=== PATIENT | female | born 1985 | race Caucasian/White ===

== ENCOUNTER 2024-03-12 15:42 | Emergency (ER) | payer OTHER, SELFPAY ==
--- NOTE | ~2024-03-12 | XR_ITS ---
EXAMINATION: XR chest 2V DATE: 03/12/2024 16:32 INDICATION: Weeks of cough TECHNIQUE: PA and lateral views of the chest were obtained. COMPARISON: None FINDINGS: The lungs are clear with no focal airspace opacities, pulmonary edema, pleural effusion or pneumothor ax. The cardiomediastinal silhouette is normal. Thoracic spondylosis. IMPRESSION: 1. No acute cardiopulmonary disease. Reviewed, dictated and finalized at location B. CORDING MIXER
[2024-03-12 15:49] VITALS: BP 143/73; PULSE 90; RESP 24; TEMP 37; O2SAT 100
--- NOTE | 2024-03-12 16:18 | ED.URI ---
HPI - URI/Sore Throat General Chief Complaint: Upper Respiratory Infection Stated Complaint: Cough Time Seen by Provider: 03/12/24 16:18 Source: patient Mode of arrival: ambulatory Limitations: no limitations History of Present Illness HPI Narrative: 38 yo F presents with c/o cough, chest congestion for 2 wks. Cough getting progressively worse with shortness of breath on exertion. Afebrile. 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 All systems reviewed and negative except as noted above. Related Data Home Medications Medication Instructions Recorded Confirmed Iud 03/12/24 Allergies Allergy/AdvReac Type Severity Reaction Status Date / Time No Known Allergies Allergy Verified 03/12/24 15:51 Review of Systems Review of Systems: CONSTITUTIONAL: Denies fever, chills, or sweats. reports fatigue. EYES: Denies visual changes, redness, or discharge. ENT: Reports rhinorrhea, congestion. Denies sore throat, or otalgia. CARDIOVASCULAR: Denies chest pain, palpitations, or edema. RESPIRATORY: Reports cough and dyspnea with exertion. GASTROINTESTINAL: Denies abdominal pain, nausea, vomiting, or diarrhea. GENITOURINARY: Denies dysuria or hematuria. SKIN: Denies rash or itching. MUSCULOSKELETAL: Denies back pain, joint pain, or myalgia. NEUROLOGIC: Denies headache, numbness, or weakness. PSYCHIATRIC: Denies anxiety or depression. All other systems reviewed are negative, except as documented in HPI. PMFSH Comments At time of signature, agree with nursing past medical, surgical, social and family history. There is no relevant family history pertinent to the presenting complaint. Exam Narrative: GENERAL: This is a well-nourished, well-developed patient, in no apparent distress. HEAD: normocephalic, atraumatic. EYES: PERRL. Sclera clear/white. Vision is grossly intact. EARS: External ears normal, auditory canals clear and without drainage, TMs normal without perforation. Hearing grossly intact. NOSE: External nose normal with no obvious nasal discharge, nares without redness, no rhinorrhea. THROAT: Mucous membranes moist, posterior pharynx clear. NECK: Neck supple, non-tender without lymphadenopathy, masses or thyromegaly. CARDIOVASCULAR: Regular rate and rhythm without murmurs, gallops, or rubs. RESPIRATORY: coarse throughout all lung jorgensen. Breath sounds equal bilaterally. No wheezes, rales, or rhonchi. SKIN: warm, Dry, intact with no suspicious lesions or rash, good texture and turgor. NEURO: awake, alert, and oriented to person, place and time. There were no obvious focal neurologic abnormalities. EXTREMITIES: No joint tenderness, effusion, or edema noted. Course Course Level of Care: Express Care Visit Vital Signs Vital signs: Vital Signs Temperature 37.0 C 03/12/24 15:49 Pulse Rate 90 03/12/24 15:49 Respiratory Rate 24 H 03/12/24 15:49 Blood Pressure 143/73 H 03/12/24 15:49 Pulse Oximetry 100 03/12/24 15:49 Oxygen Delivery Room Air 03/12/24 15:49 Temperature 37.0 C 03/12/24 15:49 Pulse Rate 90 03/12/24 15:49 Respiratory Rate 24 H 03/12/24 15:49 Blood Pressure 143/73 H 03/12/24 15:49 Pulse Oximetry 100 03/12/24 15:49 Oxygen Delivery Room Air 03/12/24 15:49 Reviewed MDM - URI/Sore Throat MDM Narrative Medical decision making narrative: chest x-ray negative for pneumonia. Will treat patient with prednisone, albuterol inhaler for acute bronchitis. Patient is aware of diagnosis, understands and agrees to treatment plan. Anticipatory guidance given. Patient agrees to follow-up as directed and is aware of reasons to seek care at the emergency department. Portions of this record may have been created with voice recognition software Differential Diagnosis Differential diagnosis: Likely upper respiratory infection, sinusitis, viral infection, bronchitis and influenza Imaging Data My impression: agree with radiologist Radiologist's impression: EXAMINATION: XR chest 2V DATE: 03/12/2024 16:32 INDICATION: Weeks of cough TECHNIQUE: PA and lateral views of the chest were obtained. COMPARISON: None FINDINGS: The lungs are clear with no focal airspace opacities, pulmonary edema, pleural effusion or pneumothorax. The cardiomediastinal silhouette is normal. Thoracic spondylosis. IMPRESSION: 1. No acute cardiopulmonary disease. Discharge Plan Discharge Clinical Impression: Acute bronchitis Patient Disposition: Home, Self-Care Condition: Stable Instructions: Acute Bronchitis (ED) Additional Instructions: Your chest x-ray was normal, no pneumonia was seen. Bronchitis is a virus and cough may last up to 6 weeks. Take medications as prescribed. Take [id number] Mucinex DM as directed on packaging. Drink at least 64 oz of water a day. Follow-up with your primary care physician if symptoms are not improving. Prescriptions: New benzonatate 200 mg capsule 200 mg PO TID PRN (Reason: cough) Qty: 20 0RF prednisone 20 mg tablet 40 mg PO DAILY 5 Days Qty: 10 0RF albuterol sulfate 90 mcg/actuation HFA aerosol inhaler 2 puff inhalation Q4-6H PRN (Reason: shortness of breath or wheezing) Qty: 8.5 0RF No Action Iud Follow-up/Referrals: PHYSICIAN NOT ON STAFF,NONSTAFF [Primary Care Provider] - Time of Disposition: 16:45
== END 2024-03-12 16:48 | disposition home or self-care (01) ==
PROVIDERS: Emergency Provider Nurse Practitioner Family
DX: J20.9 Acute bronchitis, unspecified (principal)
CPT/HCPCS: 71046; 99203; G0463

== ENCOUNTER 2024-07-01 08:01 | Emergency (ER) | payer OTHER, BC, SELFPAY ==
--- NOTE | 2024-07-01 08:03 | ED_ITS ---
HPI - URI/Sore Throat General Chief Complaint: Upper Respiratory Infection Stated Complaint: swollen tonsils Time Seen by Provider: 07/01/24 08:11 Source: patient, RN notes reviewed and old records reviewed Mode of arrival: ambulatory Limitations: no limitations History of Present Illness HPI Narrative: 38-year-old female presents to the [facility] with a sore throat and swollen tonsils since last night. Reports body aches, low-grade fevers. patient is maintaining own secretions. Has not taken anything to treat her symptoms. Onset (ago): hour(s) (12) Treatments prior to arrival: none Related Data Home Medications ?Medication ?Instructions ?Recorded ?Confirmed ?Last Taken ?Type Iud 03/12/24 Unknown History Allergies Allergy/AdvReac Type Severity Reaction Status Date / Time No Known Allergies Allergy Verified 03/12/24 15:51 Review of Systems Review of Systems: All systems reviewed & are unremarkable except as noted in HPI and below Constitutional: Constitutional: Reports as per HPI, Reports body ache(s), Reports chills, Reports fatigue and Reports fever(s) ENT: Reports as per HPI and Reports sore throat Cardiovascular: Cardiovascular: Reports no additional cardiovascular complaints, Denies chest pain and Denies dyspnea Respiratory: Respiratory: Reports no additional respiratory complaints, Denies chest congestion, Denies cough and Denies dyspnea Musculoskeletal: Musculoskeletal: Reports no additional musculoskeletal complaints Integumentary/Breasts: Skin/Breast: Reports system reviewed and no additional complaints, except as docu PMFSH Comments At the time of my signature, I reviewed and agree with the nursing past medical, surgical, social, and family history. There is no relevant family history pertinent to the patient complaint. Exam Const: General: cooperative, no acute distress, well developed, alert, tired appearing, uncomfortable and well nourished Nutritional Appearance: well nourished Orientation/consciousness: patient oriented x3 Limitations: no limitations HENMT: Head: normal to inspection Ears: hearing grossly normal bilaterally, external ears normal, TM's normal bilaterally, mastoids normal, no periauricular adenopathy and Abnormal EAC present Face/Nose/Sinus: Normal external nose present, Normal nares present, normal facial exam and sinuses nontender Face and sinus: normal facial exam Mouth: Yes Normal oral and palatal mucosa present, Yes lip normal, Yes tongue normal and Yes moist mucous membranes Thr oat: posterior oropharynx normal, uvula midline, abnormal tonsil bilateral exudates and hypertrophy 2+; no erythema and no uvular edema Eyes: General: appearance normal, both eyes and all related structures Alignment and Position: alignment normal Neck: Neck: normal visual inspection, full ROM, no lymphadenopathy and no meningeal signs Chest: Chest palpation & inspection: normal inspection of the chest Resp: Effort & Inspection: normal respiratory effort and able to speak in complete sentences Auscultation: clear to auscultation bilaterally, no crackles, no rales, no rhonchi and no wheezes Cardio: Rate: regular rate Skin: General skin exam: normal color and no rashes or lesions noted Neuro: General: patient oriented x3, gait normal, moves all extremities and no meningeal signs Cognition (Neuro): normal cognition Speech: normal speech Gait exam (Neuro): Normal gait present Extrem: General: normal to inspection, full ROM, capillary refill normal and normal gait Psych: Appearance: grossly normal and well kempt Mental Status: mental status grossly normal Speech and movement: Normal speech and movement present and Clear speech present Affect: normal affect Attitude: cooperative Course Course Level of Care: Express Care Visit Vital Signs Vital signs: Vital Signs Temperature 99.5 F 07/01/24 08:06 Pulse Rate 102 H 07/01/24 08:06 Respiratory Rate 20 07/01/24 08:06 Blood Pressure 126/74 07/01/24 08:06 Pulse Oximetry 100 07/01/24 08:06 Oxygen Delivery Room Air 07/01/24 08:06 Temperature 99.5 F 07/01/24 08:06 Pulse Rate 102 H 07/01/24 08:06 Respiratory Rate 20 07/01/24 08:06 Blood Pressure 126/74 07/01/24 08:06 Pulse Oximetry 100 07/01/24 08:06 Oxygen Delivery Room Air 07/01/24 08:06 Reviewed MDM - URI/Sore Throat MDM Narrative Medical decision making narrative: Patient sitting in exam room. Patient is nontoxic, vitals stable. patient presents for a sore throat, body aches. Patient is strep positive, flu and COVID negative. Patient is appropriate for outpatient treatment and follow- up Discharge instructions reviewed with patient, as well as provided in writing per nursing staff. The instructions also include specific and strict return/GO TO THE ER as well as f/u information. All questions have been answered, and the patient deny any further questions with discharge and discharge plan. Some parts of this dictation were generated by voice recognition software and may contain typographical and/or grammatical inaccuracies. Differential Diagnosis Differential diagnosis: Likely upper respiratory infection, otitis media, sinusitis, viral infection, bronchitis, influenza and pharyngitis Lab Data Labs: Lab Results 07/01/24 Range/Units 08:16 POC Influenza A Ag Negative (Negative) POC Influenza B Ag Negative (Negative) POC SARS CoV-2 Ag Negative (Negative) POC Grp A Strep Screen Positive (Negative) reviewed Critical Care Time Critical Care Time Critical Care Time: No Discharge Plan Discharge Clinical Impression: Strep pharyngitis Patient Disposition: Home, Self-Care Condition: Stable Instructions: Antibiotic Form, Strep Throat (DC) Additional Instructions: After 24-48 hours on antibiotics, Throw the toothbrush away, start using a new one. Please be sure to wash bed linens especially pillow cases. Repeat once you finish the antibiotics. Do not share drinks. Take Motrin alternating with Tylenol for pain and fever alternating every 4 hours. you can use Chloraseptic spray to help with sore throat Increase fluids, avoid caffeine. Give plenty of water, juice, Gatorade, P edialyte, ice pops in Jell-O Follow up with Primary provider if not getting better this week For new or worsening symptoms go directly to the emergency room Patient Language: Nauruan Prescriptions: New amoxicillin 875 mg tablet 875 mg PO Q12H Qty: 20 0RF No Action Iud benzonatate 200 mg capsule 200 mg PO TID PRN (Reason: cough) Qty: 20 0RF prednisone 20 mg tablet 40 mg PO DAILY 5 Days Qty: 10 0RF albuterol sulfate 90 mcg/actuation HFA aerosol inhaler 2 puff inhalation Q4-6H PRN (Reason: shortness of breath or wheezing) Qty: 8.5 0RF Follow-up/Referrals: UNKNOWN,DOCTOR [Non-Staff] - Stand Alone Forms: Work/School Release IP Time of Disposition: 08:24
[2024-07-01 08:06] VITALS: BP 126/74; PULSE 102; RESP 20; TEMP 37.5; O2SAT 100
--- OUTSIDE RECORDS SUMMARY | 2024-07-01 08:10 | XMS_ITS | Clinical Summary ---
Author Organization [facility] Address [address] [place] [address] Phone Care Team Providers Care Safety Risk Lead Name Role Phone Gabriel Meraz APRN, CNP Primary Care Pr ovider Allergies No known active allergies Medications COMPOUNDED MEDICATIONIndic ations:Sore throat,Mouth sore Mix equal parts prednisolone , diphenhydram ine, maalox, and viscous lidocaine. Swish and spit 20ml QID for 7 days. 600 mL 05/07/2024 Active Active Problems No known active problems Encounters Date Type Department Care Team Description 05/07/2024 Telephone [facility] [place] [address] Gabriel Meraz APRN, CNP Medication Management 05/07/2024 Refill [facility] [address] [place] [address] Gabriel Meraz APRN, CNP Medication Refill 05/03/2024 11:00 AM LUBE TECHNICIAN Office Visit [facility] [address] [place] [address] Gabriel Meraz APRN, CNP Oral leukoplakia (Primary Dx); Sore throat; Mouth sore Discharge Disposition: Discharged to home or Selfcare 05/03/2024 Telephone [facility] [address] [place] [address] Gabriel Meraz APRN, JERAMIE Medication Refill 05/01/2024 Travel 04/21/2024 Travel from Last 3 Months Family History Medical History Relation Name Comments Anxiety disorder Brother 1 Shekhar Depression Brother 1 Shekhar Diabetes Brother 1 Shekhar No Known Problems Brother 2 Cancer Father Jean Diabetes Father Jean Skin Cancer Father Jean Diabetes Mother Kirly Diabetes Sister Aye Relation Name Status Comments Brother 1 Shekhar Alive Brother 2 Alive Father Jean Alive Maternal Grandfather Alive Mother Kirly Alive Sister Aye Alive Social History Tobacco Use Types Packs/Day Years Used Date Smoking Tobacco: Never Smokeless Tobacco: Never Tobacco Cessation:Counseling Given: No Alcohol Use Standard Drinks/Week Comments Yes 0 (1 standard drink = 0.6 oz pur e alcohol) rare [facility] Utilities Answer Date Recorded In the past 12 months has e [employer], gas, oil, or water [employer] threatened to shut off services in your home? No 04/21/2024 Social Connection and Isolat ion Panel [NHANES] Answer Date Recorded In a typical week, how many times do you talk on the phone with family, friends, or neighbors? More than three times a week 04/21/2024 How often do you get togethe r with friends or relatives? Never 04/21/2024 How often do you attend chur or islam services? More than 4 times per year 04/21/2024 Do you belong to any clubs o r organizations such as hoahaoism groups, unions, fraternal or athletic groups, or school groups? No 04/21/2024 How often do you attend meet ings of the clubs or organizations you belong to? Never 04/21/2024 Are you , , di vorced, , never , or living with a partner? 04/21/2024 AUDIT-C Answer Date Recorded Q1: How often do you have a drink containing alcohol? Never 04/21/2024 Q2: How many drinks containi ng alcohol do you have on a typical day when you are drinking? Patient does not drink Q3: How often do you have si x or more drinks on one occasion? Never 04/21/2024 Overall Financial Resource Strain (CARDIA) Answe r Date Recorded How hard is it for you to pa y for the very basics like food, housing, medical care, and heating? Not hard at all 04/21/2024 PHQ-2 Answer Date Recorded Total Score - Questions 1-9 0 04/21 [facility] of Occupat ional [facility] - Occupational Stress Questionnaire Answer Date Recorded Do you feel stress - tense, restless, nervous, or anxious, or unable to sleep at night because your mind is troubled all the time - these days? Not at all 04/21/2024 Exercise Vital Sign Answer Date Recorde d On average, how many days pe r week do you engage in moderate to strenuous exercise (like a brisk walk)? 0 days 04/21/2024 On average, how many minutes do you engage in exercise at this level? 0 min 04/21/2024 Hunger Vital Sign Answer Date Recorded Within the past 12 months, y ou worried that your food would run out before you got the money to buy more. Never true 04/21/19 25 Within the past 12 months, t he food you bought just didn't last and you didn't have money to get more. Never true 04/21/2024 PRAPARE - Transportation Answer Date Re corded In the past 12 months, has l ack of transportation kept you from medical appointments or from getting medications? No 04/2024 In the past 12 months, has l ack of transportation kept you from meetings, work, or from getting things needed for daily living? No 04/21/2024 Housing Stability Vital Sign Answer Kiran e Recorded In the last 12 months, was t here a time when you were not able to pay the mortgage or rent on time? No 04/21/2024 In the past 12 months, how m any times have you moved where you were living? 0 04/21/2024 At any time in the past 12 m [facility], were you homeless or living in a fdc (including now)? No 04/21/2024 Sexually Active Control Partners Comments Yes I.U.D. Male Comments No Sex and Gender Information Value Date Recorded Sex Assigned at Female 03/25/2024 11:31 AM LUBE TECHNICIAN Legal Sex Female 11:48 AM CDT Gender Identity Female 03/25/2024 11:31 AM LUBE TECHNICIAN Sexual Orientation Straight 03/25/2024 11 :31 AM LUBE TECHNICIAN Last Filed Vital Signs Vital Sign Reading Time Taken Comments Blood Pressure 124/78 05/03/2024 10:55 AM LUBE TECHNICIAN Pulse 75 05/03/2024 10:55 AM LUBE TECHNICIAN Temperature 36.4 C (97.6 F) 05/03/2024 10:55 AM LUBE TECHNICIAN Respiratory Rate 16 05/03/2024 10:5 5 AM LUBE TECHNICIAN Oxygen Saturation 96% 05/03/2024 10: 55 AM LUBE TECHNICIAN Inhaled Oxygen Concentration - - Weight 93.4 kg (205 lb 14.4 oz) 025 10:55 AM LUBE TECHNICIAN Height 162.6 cm (5' 4 ) 05/03/2024 10:5 5 AM LUBE TECHNICIAN Body Mass Index 35.34 05/03/2024 10:55 AM LUBE TECHNICIAN Plan of Treatment Health Maintenance Due Date Last Done Comments Hepatitis C Virus (HCV) Screening 1986 Hepatitis B Immunization (1 of 3 - 19+ 3-dose series) 2005 HPV/Cotest 2016 Influenza Immunization (#1) 2023 02/24/2017 SARS-COV-2 Immunization ( season) 2023 Cervical Cancer Screening (CCS) 11/17/2025 Pap Smear 11/17/2025 11/17/2022 Respiratory Syncytial Virus (RSV) Immunization (Adult) (1 - 1-dose 75+ series) 2061 TdaP Immunization Completed 02/24/2017, 04/21/2016 Meningococcal Immunization (ACWY) Aged Out No longer eligible b ased on patient's age to complete this topic Pneumococcal Immunization Combined Aged Out No longer eligible b ased on patient's age to complete this topic Rotavirus Immunization Aged Out No lo nger eligible based on patient's age to complete this topic Procedures Procedure Name Priority Date/Time Associated Diagnosis Comments POC GROUP A STREP BY MOLECULAR Routine 05/03/2024 11:02 AM LUBE TECHNICIAN Sore throat from Last 3 Months Results * POC GROUP A STREP BY MOLECULAR (05/03/2024 11:02 AM LUBE TECHNICIAN) STREP A DNA Negative Negative, Invalid PROCEDURE CONTROL Valid 05/03/2024 11:0 2 AM LUBE TECHNICIAN Gabriel Meraz APRN, CNP POINT OF CARE TE STING (MANUAL) Final Result from Last 3 Months Insurance [facility] Care Teams Safety Risk Lead Relationship Specialty Start Date End Date Gabriel Meraz APRN, CNP [address] [address] PCP - General Advanced Practice Nurse 11/18/23
[2024-07-01 08:31] LABS: EDCOVIDSCREEN Negative (Negative); EDINFLUASCREEN Negative (Negative); EDINFLUBSCREEN Negative (Negative); EDSTREPNEGPOS1 Positive (Negative)
== END 2024-07-01 08:29 | disposition home or self-care (01) ==
PROVIDERS: Emergency Provider Nurse Practitioner
DX: J02.0 Streptococcal pharyngitis (principal); Z20.822 Contact with and (suspected) exposure to COVID-19
CPT/HCPCS: 87426; 87804; 87880; 99213; G0463

== ENCOUNTER 2024-07-28 15:06 | Emergency (ER) | payer OTHER, BC, SELFPAY ==
[2024-07-28 15:10] VITALS: BP 119/71; PULSE 80; RESP 18; TEMP 36.6; O2SAT 100
--- NOTE | 2024-07-28 15:21 | ED_ITS ---
HPI - Female Genitourinary General Chief complaint: Urogenital-Female Stated complaint: urinary irritation Source: patient and RN notes reviewed Mode of arrival: ambulatory Limitations: no limitations History of Present Illness HPI Narrative: 38 y/o female presented for c/o pressure at the end of urination, frequency and urgency. Onset yesterday. Denies hematuria, nausea, vomiting, abdominal pain, flank pain, constipation, diarrhea, fevers or chills. Related Data Home Medications ?Medication ?Instructions ?Recorded ?Confirmed ?Last Taken ?Type Iud 03/12/24 Unknown History Donna-D 24 Hour 07/28/24 Unknown History flonase 07/28/24 Unknown History Allergies Allergy/AdvReac Type Severity Reaction Status Date / Time No Known Allergies Allergy Verified 07/28/24 15:13 Review of Systems Review of Systems: CONSTITUTIONAL: Denies body aches, fever, chills, or sweats. CARDIOVASCULAR: Denies chest pain, palpitations, or edema. RESPIRATORY: Denies cough or dyspnea. GASTROINTESTINAL: Denies abdominal pain, nausea, vomiting, or diarrhea. GENITOURINARY: Reports dysuria, frequency, urgency, denies hematuria, flank pain SKIN: Denies rash, itching, or wounds. MUSCULOSKELETAL: Denies back pain or myalgia. PMFSH Comments At time of signature, I have reviewed and agree with nursing past medical, surgical, social and family history unless otherwise noted. Please see nursing chart for further information. There is no relevant family history pertinent to the presenting complaint Exam Narrative: GENERAL: Well-appearing ENT: Mucous membranes pink and moist. CHEST: No respiratory distress. Clear to auscultation. HEART: Regular rate and rhythm. ABDOMEN: Soft, nontender, nondistended, normal active bowel sounds. No CVA tenderness SKIN: Warm, dry, no rash. NEURO: No focal deficits. Alert and oriented x3. Gait steady. PSYCH: Normal affect. Course Course Emergency Course: Patient is aware of diagnosis, understands and agrees to treatment plan. Anticipatory guidance given. Patient agrees to follow-up as directed and is aware of reasons to seek care at the emergency department. Portions of this record may have been created with voice recognition software Level of Care: Express Care Visit Vital Signs Vital signs: Reviewed MDM - Female Genitourinary MDM Narrative Medical decision making narrative: Discussed physical exam findings and urine dip , Rx macrobid Advised supportive measures and signs/symptoms to go to the ER. Pt is appropriate for outpt treatment and f/u. Differential Diagnosis Differential diagnosis: Likely urinary tract infection, vaginitis and cystitis Discharge Plan Discharge Clinical Impression: Urinary tract infection Patient Disposition: Home Condition: Stable Instructions: Antibiotic Form, Urinary Tract Infection in Women (ED) Additional Instructions: Take the antibiotic as prescribed The urine will be sent of for a culture to identify what type of bacteria is causing your infection. If the culture shows that the antibiotic will not get rid of your infection, you will be notified and a new antibiotic will be called in for you. Increase water intake you will need to follow up with your PCP, call to schedule an appointment. Go to the ER for any worsening symptoms or concerns Patient Language: Thai Prescriptions: New nitrofurantoin monohyd/m-cryst [Macrobid] 100 mg capsule 100 mg PO Q12H 5 Days Qty: 10 0RF Rx Instructions: must administer with a meal/food No Action Iud Donna-D 24 Hour flonase Follow-up/Referrals: PHYSICIAN,MONITORING AND EVALUATION ADVISOR [Primary Care Provider] - Time of Disposition: 15:30
--- OUTSIDE RECORDS SUMMARY | 2024-07-28 16:32 | XMS_ITS | Continuity of Care Document ---
Author Organization [facility] Address [address] [place] [address] Phone Care Team Providers Care Broom Machine Operator Name Role Phone DEYSI MCCRACKEN MD Unavailable [...] Diagnoses Date Provider Providers Copied on Encounter [facility] , [address], [place], [place], [id number], [place] tel:[phone] [place] IUD REMOVAL (chief complaint) Encounter for removal of intrauterine contraceptive device 2 [address], [place], [id number], . tel:[phone] Referring Provider: DEYSI MCCRACKEN, [address] [place], [address]. tel:[phone] [facility] , [facility], [id number], tel:[phone] [facility] [place] [facility] rastafari status JERROD SHINE. [address] [place], [place], [id number], [place]. tel:[phone] Referring Provider: RL ELDER, [address] [place], [address]. tel:[phone] [facility] , [facility], [id number], [place] tel:[phone] [facility] [place] No Information 8 TYESHA [address]. [address] [place], [id number], [place]. tel:[phone] Referring Provider: KATE MCKEE, [address], [address]. tel:[phone] [facility] , [facility], [id number], tel:[phone] [facility] [place] No Information 8 JERROD SHINE. [address], [place], [id number], [place]. tel:[phone] Referring Provider: RL ELDER, [address] [place], [address]. tel:[phone] Family History Family Member Type Diagnosis Age At Onset Mother Problem Diabetes mellitus Father Problem Diabetes mellitus Paternal aunt Problem malignant neoplasm of ovary Payers Payer name Insurance type Covered democrat ID Authoriza tion(s) No Information Social History [...]
--- OUTSIDE RECORDS SUMMARY | 2024-07-28 16:32 | XMS_ITS | Clinical Summary ---
Author Organization [facility] Address [address] [place] [address] Phone Care Team Providers Care Qa Manager Name Role Phone Gabriel Meraz APRN, CNP Primary Care Pr ovider Allergies No known active allergies Medications COMPOUNDED MEDICATIONIndic ations:Sore throat,Mouth sore Mix equal parts prednisolone , diphenhydram ine, maalox, and viscous lidocaine. Swish and spit 20ml QID for 7 days. 600 mL 05/07/2024 Active Active Problems No known active problems Encounters Date Type Department Care Team Description 05/07/2024 Telephone [facility] [place] [address] Gabriel Meraz APRN, CNP Medication Management 05/07/2024 Refill [facility] [place] [address] Gabriel Meraz APRN, CNP Medication Refill 05/03/2024 11:00 AM MILITARY TECHNOLOGY SPECIALIST Office Visit [facility] [place] [address] Gabriel Meraz APRN, CNP Oral leukoplakia (Primary Dx); Sore throat; Mouth sore Discharge Disposition: Discharged to home or Selfcare 05/03/2024 Telephone [facility] [place] [address] Gabriel Meraz APRN, JERAMIE Medication Refill 05/01/2024 Travel from Last 3 Months Family History [...] = 0.6 oz pur e alcohol) rare [facility] Utilities Answer Date Recorded In the past 12 months has [employer], gas, oil, or water company threatened to shut off services in your [...] How often do you attend chur or gnosticist services? More than 4 times per year 04/21/2024 Do you belong to any clubs o r organizations such as anabaptist groups, unions, fraternal or athletic groups, or [...] Total Score - Questions 1-9 0 04/21 [facility] of Occupat ional [facility] - Occupational Stress Questionnaire Answer Date [...] any time in the past 12 m [facility], were you homeless or living in a nursing home (including now)? No 04/21/2024 Sexually Active Control Partners Comments Yes I.U.D. Male Comments No Sex and Gender Information Value Date Recorded Sex Assigned at Female 03/25/2024 11:31 AM MILITARY TECHNOLOGY SPECIALIST Legal Sex Female 11:48 AM CDT Gender Identity Female 03/25/2024 11:31 AM MILITARY TECHNOLOGY SPECIALIST Sexual Orientation Straight 03/25/2024 11 :31 AM MILITARY TECHNOLOGY SPECIALIST Last Filed Vital Signs Vital Sign Reading Time Taken Comments Blood Pressure 124/78 05/03/2024 10:55 AM MILITARY TECHNOLOGY SPECIALIST Pulse 75 05/03/2024 10:55 AM MILITARY TECHNOLOGY SPECIALIST Temperature 36.4 C (97.6 F) 05/03/2024 10:55 AM MILITARY TECHNOLOGY SPECIALIST Respiratory Rate 16 05/03/2024 10:5 5 AM MILITARY TECHNOLOGY SPECIALIST Oxygen Saturation 96% 05/03/2024 10: 55 AM MILITARY TECHNOLOGY SPECIALIST Inhaled Oxygen Concentration - - Weight 93.4 kg (205 lb 14.4 oz) 025 10:55 AM MILITARY TECHNOLOGY SPECIALIST Height 162.6 cm (5' 4 ) 05/03/2024 10:5 5 AM MILITARY TECHNOLOGY SPECIALIST Body Mass Index 35.34 05/03/2024 10:55 AM MILITARY TECHNOLOGY SPECIALIST Plan of Treatment Health Maintenance Due Date [...] STREP BY MOLECULAR Routine 05/03/2024 11:02 AM MILITARY TECHNOLOGY SPECIALIST Sore throat from Last 3 Months Results * POC GROUP A STREP BY MOLECULAR (05/03/2024 11:02 AM MILITARY TECHNOLOGY SPECIALIST) STREP A DNA Negative Negative, Invalid PROCEDURE CONTROL Valid 05/03/2024 11:0 2 AM MILITARY TECHNOLOGY SPECIALIST Gabriel Meraz APRN, CNP POINT OF CARE TE STING (MANUAL) Final Result from Last [address] [place] [address] Care Teams Qa Manager Relationship Specialty Start Date End Date Gabriel Meraz APRN, JERAMIE #[address] [address] PCP - General Advanced Practice Nurse 11/18/23
--- OUTSIDE RECORDS SUMMARY | 2024-07-28 16:34 | XMS_ITS | Continuity of Care Document ---
Author Organization [facility] Address [address] [place] [address] Phone Care Team Providers Care Stranding Supervisor Name Role Phone DEYSI MCCRACKEN MD Unavailable [...] Diagnoses Date Provider Providers Copied on Encounter [facility] , [address], [place], [place], [id number], [place] tel:[phone] [place] IUD REMOVAL (chief complaint) Encounter for removal of intrauterine contraceptive device 2 [address], [place], [id number], . tel:[phone] Referring Provider: DEYSI MCCRACKEN, [address] [place], [address]. tel:[phone] [facility] , [facility], [id number], tel:[phone] [facility] [place] Dental buddhism status JERROD SHINE. [address] [place], [place], [id number], [place]. tel:[phone] Referring Provider: RL ELDER, [address] [place], [address]. tel:[phone] [facility] , [facility], [id number], [place] tel:[phone] [facility] [place] No Information 8 TYESHA RIVERA. [address] [place], [id number], [place]. tel:[phone] Referring Provider: KATE MCKEE, [address], [address]. tel:[phone] [facility] , [facility], [id number], tel:[phone] [facility] [place] No Information 8 JERROD SHINE. [address] [place], [place], [id number], [place]. tel:[phone] Referring Provider: RL ELDER, [address] [place], [address]. tel:[phone] Family History Family Member Type Diagnosis Age At Onset Mother Problem Diabetes mellitus Father Problem Diabetes mellitus Paternal aunt Problem malignant neoplasm of ovary Payers Payer name Insurance type Covered [employer] ID Authoriza tion(s) No Information Social [...]
[2024-07-28 16:36] LABS: EDUAAPPEAR Clear; EDUABILI Negative (Negative); EDUABLOOD Trace (Negative); EDUACOLOR1 Yellow; EDUAGLUCOSE Negative (Negative); EDUAKETONE Negative (Negative); EDUALEUKO Trace (Negative); EDUANITRATE Positive (Negative); EDUAPROTEIN Negative (Negative); EDUASPGRAVITY 1.025; EDUAUROBILI 0.2
== END 2024-07-28 15:33 | disposition home or self-care (01) ==
PROVIDERS: Emergency Provider Nurse Practitioner Family
DX: N39.0 Urinary tract infection, site not specified (principal); B96.1 Klebsiella pneumoniae [K. pneumoniae] as the cause of diseases classified elsewhere
CPT/HCPCS: 81003; 87077; 87086; 87186; 99213; G0463

== ENCOUNTER 2025-01-15 09:42 | Outpatient (CLI) | payer OTHER, BC, SELFPAY ==
[2025-01-15 09:55] LABS: Hematocrit 40.9 % (35.0-49.0); Hemoglobin 13.2 g/dL (12.0-15.0); Immature Granulocyte Percent A 0.6 % (0.0-0.0); Lymphocytes Absolute Auto 2.18 K/mm3 (1.10-4.50); Mean Corpuscular HGB Conc 32.3 g/dL (32-36); Mean Corpuscular Hemoglobin 30.1 pg (27.0-31.0); Mean Corpuscular Volume 93.4 fL (78.0-102.0); Nucleated Red Blood Cells Absolute Auto 0.00 K/mm3 (0.00-0.00); Nucleated Red Blood Cells Perc 0.0 % (0-0.0); Platelet Count Result 297 K/mm3 (150-420); Red Blood Count 4.38 M/mm3 (4.20-5.40); White Blood Count 14.1 K/mm3 (4.8-10.8)
[2025-01-15 10:33] LABS: Alanine Aminotransferase 17 U/L (6-35); Albumin Level 4.6 g/dL (3.5-5.1); Alkaline Phosphatase 69 U/L (38-126); Anion Gap 8 mmol/L (4-12); Aspartate Amino Transferase 25 U/L (14-36); Bilirubin,Total 0.9 mg/dL (0.2-1.3); Blood Urea Nitrogen 14 mg/dL (7-17); Calcium 9.8 mg/dL (8.4-10.2); Carbon Dioxide 28 mmol/L (22-30); Chloride 105 mmol/L (98-107); Cholesterol 178 mg/dL (0-200); Estimated Glomerular Filt Rate > 60; Glucose 95 mg/dL (65-110); HDL Direct 62 mg/dL; Osmolality Calculated 292 mOsm/kg (285-295); Potassium 5.0 mmol/L (3.4-5.0); Sodium 141 mmol/L (137-145); Total Protein 9.2 g/dL (6.3-8.2); Triglycerides 76 mg/dL (<150)
[2025-01-15 11:03] LABS: Thyroid Stimulating Hormone Reflex 0.955 uIU/mL (0.465-4.68)
[2025-01-15 11:10] LABS: Hemoglobin A1C 5.5 % (<5.7)
== END 2025-01-15 09:43 | disposition home or self-care (01) ==
LOC: CHSLAB 09:44
PROVIDERS: PCP Nurse Practitioner Family; Visit Provider Nurse Practitioner Family
DX: Z00.00 Encounter for general adult medical examination without abnormal findings (principal)
CPT/HCPCS: 36415; 80053; 80061; 83036; 84443; 85025

== ENCOUNTER 2025-02-05 08:34 | Outpatient (CLI) | payer OTHER, BC, SELFPAY ==
--- OUTSIDE RECORDS SUMMARY | 2022-03-25 10:20 | XMS_ITS | Continuity of Care Document ---
Author Organization [facility] Address [address] [place] [address] Phone Care Team Providers Care Director Database Name Role Phone DEYSI MCCRACKEN MD Unavailable Unavailable Allergies, Adverse Reactions, Alerts Substance Reaction Status Criticality minocycline Active No Information Medications Medication Instructions Dosage Effective Dates (start - stop) Status Comments No Drug Therapy Prescribed Procedures Procedure Date SYST BP LT 130 MM HG DIAST BP 80-89 MM HG IUD Removal Only URINE TEST Resin-2 surface, posterior Occlusal adjustment-limited Prophy Adult Intraoral Full Mouth Xrays Comp oral eval-new/estab pat Advance Directives Directive Yes / No Effective Date File Name Other Directive No N/A N/A WARNING:The information contained in this section is historical and is provided for information only and does not constitute a legal document or any assurance that the information is still accurate. Please verify the information with the lopez of the legal document before using it for clinical purposes. Encounters Encounter Description Practice Location Reason(s) For Visit Diagnoses Date Provider Providers Copied on Encounter [facility] , [address], [place], [place], [id number], [place] tel:[phone] [place] IUD REMOVAL (chief complaint) Encounter for removal of intrauterine contraceptive device 2 KAYKAY JO. [address], [place], [id number], . tel:[phone] Referring Provider: DEYSI MCCRACKEN, [address] [place], [address]. tel:[phone] [facility] , [facility], [id number], tel:[phone] [facility] caodaism status JERROD SHINE. [address], [place], [id number], [place]. tel:[phone] Referring Provider: RL ELDER, [address] [place], [address]. tel:[phone] [facility] , [facility], [id number], [place] tel:[phone] [facility] No Information 8 TYESHA RIVERA. [address], [place], [id number], [place]. tel:[phone] Referring Provider: KATE MCKEE, [address], [address]. tel:[phone] [facility] , [facility], [id number], tel:[phone] [facility] No Information 8 JERROD SHINE. [address], [place], [id number], [place]. tel:[phone] Referring Provider: RL ELDER, [address] [place], [address]. tel:[phone] Family History Family Member Type Diagnosis Age At Onset Mother Problem Diabetes mellitus Father Problem Diabetes mellitus Paternal aunt Problem malignant neoplasm of ovary Payers Payer name Insurance type Covered constitution party ID Authoriza tion(s) No Information Social History Type Description Quantity Date Captured Comments Alcohol Use Details Unknown Caffeine Use Details Unknown Tobacco Use Status Current non-smoker Smoking Status Never smoker Non-Smoking Tobacco Use Details : No Details Available : No Details Available Sex Female Sexual Orientation Straight or heterosexual Gender Identity Female Vital Signs Date / Time: Height Weight BMI Pulse Rate Blood Pressure Temperature Respiratory Rate Body Surface Area Head Circumference Head Circ. Percentile Wt./John Paul. Percentile BMI percentile Pulse Ox Inhaled Ox 3:21 PM 66.00 in 85.457 kg (188.40 lbs) 30.4 1 kg/m eter (2) 74 /min 116/82 mm[Hg] 98.10 F 19 /min Chief Complaint And Reason For Visit From encounter dated '03/25/2022 15:20'. IUD REMOVAL (chief complaint). Description: Patient is 36 yo female here requesting removal of IUD so she can try to get again. She has already taking PNV. No other issues. Reason For Referral Reason For Referral No Information History Of Present Illness Encounter Date Complaint History Of Prese nt Illness IUD REMOVAL Patient is 36 yo female here requesting removal of IUD so she can try to get again. She has already taking PNV. No other issues. Functional Status Date Functional Assessmen t No Information Medications Administered Medication Instructions Dosage Effective Dates (start - stop) Status Comments No Drug Therapy Prescribed Instructions Date Instruction Additional Infor mation No Information Assessments Type Assessment Date assessment Encounter for removal of intraut erine contraceptive device impression Mirena IUD removed i ntact. Briefly reviewed with patient what to expect when she gets at age 36, screening for chromosomal anomalies, risk of miscarriage, more fatigue, gestational HTN and gestational DM. All her questions answered. Patient Care Teams Name Effective Dates (start - stop) Status Members No Information
--- OUTSIDE RECORDS SUMMARY | 2023-04-02 19:15 | XMS_ITS | Continuity of Care Document ---
Author Organization [facility] Address [address] [place] [address] Phone Care Team Providers Care Chief Airline Radio Operator Name Role Phone Pelon Stone Unavailable Unavailable Allergies, Adverse Reactions, Alerts Substance Reaction Status Criticality No Known allergies Medications Medication Instructions Dosage Effective Dates (start - stop) Status Comments ibuprofen 600 mg tablet take 1 tablet by oral route 3 times every day with food 600 MG - Active cyclobenzaprine 10 mg tablet take 1 tablet by oral route 2 times every day - Active Zithromax Z-Joseph 250 mg tablet take 2 tablet by oral route every day for 1 day then 1 tablet (250 mg) by oral route once daily for 4 days 500 MG - No Longer Active Procedures Procedure Date Offic/outpt E&m New Mod-mo 45 3 Inj Ketorolac Tromethamine Per 15 Mg Mar Therapeutic, Prophylactic, Or Diagnostic Inj Sub Q Agt-immunassay Dir Obs; Strep 2 Offic/outpt E&m New Mod Sever 2 Advance Directives Directive Yes / No Effective Date File Name No Information Encounters Encounter Description Practice Location Reason(s) For Visit Diagnoses Date Provider Providers Copied on Encounter Offic/outpt E&m New Mod-hi 45 [facility], [address], [place], [place], [id number], [place] tel:[phone] [facility] back pain (chief complaint) Exacerbation of chronic back painOther chronic painAcute cough Stephen Bird. [address], [address], [place], [place], [id number], [place]. tel:[phone] Referring Provider: Pelon Mitchell PAC, [address] [place] [address], [place], [address]. [phone] Offic/outpt E&m [facility], [address] [facility], [place], [place], [id number], [place] tel:[phone] [facility] sore throat (chief complaint) Pain in throatAcute pharyngitis, unspecified etiology Felicity Dinero. [address], [place] [address], [place], [address], [place]. tel:[phone] Referring Provider: Bar LINDSEYP, [address] [place] [address], [place], [address]. [phone] Family History Family Member Type Diagnosis Age At Onset No Information Payers Payer name Insurance type Covered constitution party ID Sandorleslye virachapo(s) Sonu [facility] CI [id number] [facility] CI [id number] Social History Type Description Quantity Date Captured Comments Alcohol Use Details No Caffeine Use Details Unknown Tobacco Use Status Current non-smoker Smoking Status Never smoker Non-Smoking Tobacco Use Details : No Details Available : No Details Available Sex Female Vital Signs Date / Time: Height Weight BMI Pulse Rate Blood Pressure Temperature Respiratory Rate Body Surface Area Head Circumference Head Circ. Percentile Wt./John Paul. Percentile BMI percentile Pulse Ox Inhaled Ox 12:29 AM 64.00 in 88.451 kg (195.00 lbs) 33.4 7 kg/m eter (2) 72 /min 112/77 mm[Hg] 97.70 F 18 /min 99 % Chief Complaint And Reason For Visit From encounter dated '04/03/2023 00:15'. back pain (chief complaint). Description: Onset: 1 day ago. The problem is stable. It occurs persistently. Location of pain is lower back. Symptoms are aggravated by changing positions. Pertinent negatives include abdominal pain, bladder dysfunction not spinal related, bladder incontinence, bladderretention, bowel dysfunction not spinal related, bowel incontinence, bowel retention, decreased mobility, diarrhea, dyspareunia, joint pain, limping, loss of balance, numbness, rash, sexual dysfunction, sexual dysfunction not spinal related, spasms, tenderness, tingling in the arms, tingling in thelegs, weakness and weight loss. Reason For Referral Reason For Referral No Information Plan Of Treatment Date Type Action Status Patient Education Sore Throat: Care Instr uctions completed History Of Present Illness Encounter Date Complaint History Of Prese nt Illness back pain Onset: 1 day ago . The problem is stable. It occurs persistently. Location of pain is lower back. Symptoms are aggravated by changing positions. Pertinent negatives include abdominal pain, bladder dysfunction not spinal related, bladder incontinence, bladder retention, bowel dysfunction not spinal related, bowel incontinence, bowel retention, decreased mobility, diarrhea, dyspareunia, joint pain, limping, loss of balance, numbness, rash, sexual dysfunction, sexual dysfunction not spinal related, spasms, tenderness, tingling in the arms, tingling in the legs, weakness and weight loss. sore throat Onset: 1 day ago . Severity level: 6. It occurs acutely. The problem has worsened. Context: tonsils present. There are no aggravating factors. There are no relieving factors. Associated symptoms include redness and sore throat. Pertinent negatives include abdominal pain, chills, conjunctivitis, cough (barking), cough (productive), dehydration, diaphoresis, dyspnea, fever, halitosis, headache, hoarseness, joint pain, lymphadenopathy, malaise, nasal congestion, not drinking, not eating, oral thrush, otalgia, post-nasal drainage, rash, trismus and vomiting. Functional Status Date Functional Assessmen t No Information Instructions Date Instruction Additional Infor floresita FOR FEVER, TAKE TYLE NOL (ACETOMINOPHEN) EVERY 4-6 HOURS OR IBUPROFEN EVERY 6 HOURSDRINK PLENTY OF FLUIDS. TAKE A LUKEWARM BATH (NOT COOL ENOUGH TO CAUSE SHIVERING). DRINK PLENTY OF FLUIDS INCLUDING SPORTS DRINKS/PEDIALYTE, WATER, JUICES AND OTHER REHYDRATING FLUIDS. STAY AWAY FROM CAFFEINATED BEVERAGES THEY CAUSE DEHYDRATION.GARGLE WITH SALT WATER EVERY FEW HOURS NEEDED FOR SORE THROAT. USE 1 TEASPOON OF SALT IN 8-12 OUNCES OF WARM WATER. Consider nasal/sinus rinses with saline. Consider use of ycyx-zbo-ababsuh decongestant such as pseudoephedrine or phenylephrine. Follow up with your primary care doctor within 1week. Go to emergency room if symptoms worsen. Related to Acute cough Assessments Type Assessment Date assessment Exacerbation of chronic back patricia n assessment Other chronic pain assessment Acute cough Patient Care Teams Name Effective Dates (start - stop) Status Members No Information
--- OUTSIDE RECORDS SUMMARY | 2025-02-05 08:37 | XMS_ITS | Clinical Summary ---
Author Organization [facility] Address [address] [place] [address] Phone Care Team Providers Care Graduate Assistant Name Role Phone Gabriel Meraz APRN, JERAMIE Primary Care Pr ovider Allergies No known active allergies Medications COMPOUNDED MEDICATIONIndic ations:Sore throat,Mouth sore Mix equal parts prednisolone , diphenhydram ine, maalox, and viscous lidocaine. Swish and spit 20ml QID for 7 days. 600 mL 05/07/2024 Active Active Problems No known active problems Family History Medical History Relation Name Comments [...] = 0.6 oz pur e alcohol) rare [facility] Utilities Answer Date Recorded In the past 12 months has e electric, gas, oil, or water company threatened to shut off services in your home? No 04/21/2024 Social Connection and Isolation Panel Answer Date Recorded In a typical week, how many times do you talk on the phone with family, friends, or neighbors? More than three times a week 04/21/2024 How often do you get togethe r with friends or relatives? Never 04/21/2024 How often do you attend chur or mormonism services? More than 4 times per year 04/21/2024 Do you belong to any clubs o r organizations such as faith groups, unions, fraternal or athletic groups, or [...] Total Score - Questions 1-9 0 04/21 [facility] of Occupat ional Health - Occupational Stress Questionnaire Answer Date Recorded [...] any time in the past 12 m [facility], were you homeless or living in a senior care (including now)? No 04/21/2024 Sexually Active Control Partners Comments Yes I.U.D. Male Comments No Sex and Gender Information Value Date Recorded Sex Assigned at Female 03/25/2024 11:31 AM RESIDENTIAL SALES REPRESENTATIVE Legal Sex Female 11:48 AM CDT Gender Identity Female 03/25/2024 11:31 AM RESIDENTIAL SALES REPRESENTATIVE Sexual Orientation Straight 03/25/2024 11 :31 AM RESIDENTIAL SALES REPRESENTATIVE Last Filed Vital Signs Vital Sign Reading Time Taken Comments Blood Pressure 124/78 05/03/2024 10:55 AM RESIDENTIAL SALES REPRESENTATIVE Pulse 75 05/03/2024 10:55 AM RESIDENTIAL SALES REPRESENTATIVE Temperature 36.4 C (97.6 F) 05/03/2024 10:55 AM RESIDENTIAL SALES REPRESENTATIVE Respiratory Rate 16 05/03/2024 10:5 5 AM RESIDENTIAL SALES REPRESENTATIVE Oxygen Saturation 96% 05/03/2024 10: 55 AM RESIDENTIAL SALES REPRESENTATIVE Inhaled Oxygen Concentration - - Weight 93.4 kg (205 lb 14.4 oz) 025 10:55 AM RESIDENTIAL SALES REPRESENTATIVE Height 162.6 cm (5' 4) 05/03/2024 10:5 5 AM RESIDENTIAL SALES REPRESENTATIVE Body Mass Index 35.34 05/03/2024 10:55 AM RESIDENTIAL SALES REPRESENTATIVE Plan of Treatment Health Maintenance Due Date Last Done Comments Hepatitis C Virus (HCV) Screening 1986 Hepatitis B Immunization (1 of 3 - 19+ 3-dose series) 2005 Human Papillomavirus (HPV) Immunization (1 - 3-dose SCDM series) 2013 HPV/Cotest 2016 Influenza Immunization (#1) 2024 02/24/2017 SARS-COV-2 Immunization (1 - 2025-26 season) 2024 Cervical Cancer Screening (CCS) 11/17/2025 Pap Smear [...] on patient's age to complete this topic [place] [address] [place] [address] Care Teams Graduate Assistant Relationship Specialty Start Date End Date Gabriel Meraz APRN, JERAMIE [address] [place] [address] PCP - General Advanced Practice Nurse 11/18/23
--- OUTSIDE RECORDS SUMMARY | 2025-02-05 08:38 | XMS_ITS | Patient Health Record ---
Author Organization [facility] Address [address] [place] [address] Care Team Providers Care Manufacturing Manager Name Role Phone Kenrick Khan DO Unavailable Unavailable Reason For Referral No Information Social History Social History Drugs/Alcohol: Social Info Question Answer Notes Drugs Have you used drugs other than those for medical reasons in the past 12 months? No Do NOT USE Social Info Question Answer Notes Alcohol: Frequency: pt admits to dr jovanni gerardo and stated she could finish a whole bottle and it varies as to how she drinks her wine sometimes more and somestimes less Smoking: Year(s) pt smokes a pac k a day and is sort of ready to quit Tobacco Use: Social Info Question Answer Notes Tobacco use other than smoking: Are you an other tobacco user? No Plan Of Treatment No Information
--- OUTSIDE RECORDS SUMMARY | 2025-02-05 08:38 | XMS_ITS | Clinical Summary ---
Author Organization [facility] Address [address] [place] [id number] Care Team Providers Care Body Rolling Machine Tender Name Role Phone Jeramy Le MD Primary Care Provider [phone] Allergies Active Allergy Reactions Criticality Noted Date Comments No Known Allergies 01/22/2019 Medications No known medications Active Problems Problem Noted Date Diagnosed Date Skin lesion of left leg 06/14/2019 Allergic rhinitis 04/28/2019 Immunizations Immunization Administration Dates Next Due Influenza, Quad Single Dose PF 0.5mL 6+Mo 04/28/2019(Deferred: Patient Refused),02/24/2017 Influenza, adjuvanted, triva lent, PF (IIV3)(Fluad) 02/24/2017 Tdap 02/24/2017,04/21/2016 Family History Medical History Relation Comments Diabetes Father Diabetes Mother Relation Status Comments Father Mother Social History Tobacco Use Types Packs/Day Years Used Date Smoking Tobacco: Never Smokeless Tobacco: Never Alcohol Use Standard Drinks/Week Comments Yes 0 (1 standard drink = 0.6 oz pur e alcohol) AUDIT-C Answer Date Recorded Frequency of Alcohol Consumption Monthly or less 05/28/2019 Average Number of Drinks Not on file 020 Frequency of Binge Drinking Not on file 10/2019 Comments Unknown Sex and Gender Information Value Date Recorded Sex Assigned at Not on file Legal Sex Female 1:49 AM [facility] Gender Identity Not on file Sexual Orientation Not on file Last Filed Vital Signs Vital Sign Reading Time Taken Comments Blood Pressure 104/74 05/28/2019 9:52 AM [facility] Pulse 74 05/28/2019 9:52 AM [facility] Temperature 37.3 C (99.1 F) 05/28/2019 9:52 AM [facility] Respiratory Rate 20 05/28/2019 9:52 AM [facility] Oxygen Saturation 100% 05/28/2019 9:52 AM [facility] Inhaled Oxygen Concentration - - Weight 86.2 kg (190 lb 1.9 oz) 05/28/2019 9:52 A M [facility] Height 160 cm (5' 3) 05/28/2019 9:52 AM [facility] Body Mass Index 33.68 05/28/2019 9:52 AM [facility] Plan of Treatment Health Maintenance Due Date Last Done Comments PHQ-9 Depression Screen 1998 Complete Annual HRA 2004 OPAL-7 Anxiety Screen 2004 Cervical Cancer Screening (Pap/HPV) 11/04/2007 COVID-19 Vaccine ( season) 2024 Influenza Vaccine (#1) 2024 02/24/2017, 2016 DTaP,Tdap,and Td Vaccines (3 - Td or Tdap) 02/24/2027 02/24/2017, 04/21/2016 RSV Vaccine (SCDM) (1 - 1-dose 75+ series) 2061 Care Teams Body Rolling Machine Tender Relationship Specialty [place] [address] [facility] [address] [place] [address] PCP - General Family Medicine 01/14/19
[2025-02-05 09:52] LABS: Hematocrit 39.0 % (35.0-49.0); Hemoglobin 12.6 g/dL (12.0-15.0); Immature Granulocyte Percent A 0.2 % (0.0-0.0); Lymphocytes Absolute Auto 1.89 K/mm3 (1.10-4.50); Mean Corpuscular HGB Conc 32.3 g/dL (32-36); Mean Corpuscular Hemoglobin 30.1 pg (27.0-31.0); Mean Corpuscular Volume 93.3 fL (78.0-102.0); Nucleated Red Blood Cells Absolute Auto 0.00 K/mm3 (0.00-0.00); Nucleated Red Blood Cells Perc 0.0 % (0-0.0); Platelet Count Result 312 K/mm3 (150-420); Red Blood Count 4.18 M/mm3 (4.20-5.40); White Blood Count 8.0 K/mm3 (4.8-10.8)
== END 2025-02-05 08:35 | disposition home or self-care (01) ==
LOC: CHSLAB 08:35
PROVIDERS: PCP Nurse Practitioner Family; Visit Provider Nurse Practitioner Family
DX: D72.829 Elevated white blood cell count, unspecified (principal)
CPT/HCPCS: 36415; 85025

== ENCOUNTER 2025-03-26 09:17 | Emergency (ER) | payer OTHER, BC, SELFPAY ==
[2025-03-26 09:27] VITALS: BP 118/76; PULSE 72; RESP 16; TEMP 36.6; O2SAT 98
--- NOTE | 2025-03-26 09:57 | ED.URI ---
HPI - URI/Sore Throat General Chief Complaint: Upper Respiratory Infection Stated Complaint: Left Ear Pain Time Seen by Provider: 03/26/25 09:57 Source: patient Mode of arrival: ambulatory Limitations: no limitations History of Present Illness HPI Narrative: 39-year-old female presents with complaint of nasal congestion, cough, sore throat for 4 days. Afebrile. Left ear pain for 1 day. Taking over the counter Mucinex cold and cough. All systems reviewed and negative except as noted above. Related Data Home Medications ?Medication ?Instructions ?Recorded ?Confirmed ?Last Taken ?Type Iud 03/12/24 01/13/25 Unknown History levonorgestrel (Mirena) 1 device intrauterine ONCE 03/26/25 Unknown History Allergies Allergy/AdvReac Type Severity Reaction Status Date / Time No Known Allergies Allergy Verified 03/26/25 09:56 [facility] Past Medical History Medical History Gestational diabetes Surgical History Surgical History Hx of appendectomy History of breast augmentation Family History Family History (Updated 01/13/25 @ 16:55 by Denisha Merida APRN) Father Diabetes mellitus Skin cancer Mother Heart disease Sibling Diabetes mellitus Sibling Diabetes mellitus Grandparent Heart disease Social History Social History Smoking status: Unknown if ever smoked Comments At time of signature, agree with nursing past medical, surgical, social and family history. There is no relevant family history pertinent to the presenting complaint. Exam Narrative: GENERAL: This is a well-nourished, well-developed patient, in no apparent distress. HEAD: normocephalic, atraumatic. EYES: PERRL. Sclera clear/white. Vision is grossly intact. EARS: External ears normal, auditory canals clear and without drainage, Fluid erythema, bulging Left TM, right TM normal. No perforation bilaterally. Hearing grossly intact. NOSE: External nose normal with Congestion, clear nasal drainage THROAT: Mucous membranes moist, posterior pharynx clear. NECK: Neck supple, non-tender without lymphadenopathy, masses or thyromegaly. CARDIOVASCULAR: Regular rate and rhythm without murmurs, gallops, or rubs. RESPIRATORY: Clear to auscultation. Breath sounds equal bilaterally. No wheezes, rales, or rhonchi. SKIN: warm, Dry, intact with no suspicious lesions or rash, good texture and turgor. NEURO: awake, alert, and oriented to person, place and time. There were no obvious focal neurologic abnormalities. EXTREMITIES: No joint tenderness, effusion, or edema noted. Course Course Level of Care: Express Care Visit Vital Signs Vital signs: Vital Signs Temperature 36.6 C 03/26/25 09:27 Pulse Rate 72 03/26/25 09:27 Respiratory Rate 16 03/26/25 09:27 Blood Pressure 118/76 03/26/25 09:27 Pulse Oximetry 98 03/26/25 09:27 Oxygen Delivery Room Air 03/26/25 09:27 Temperature 36.6 C 03/26/25 09:27 Pulse Rate 72 03/26/25 09:27 Respiratory Rate 16 03/26/25 09:27 Blood Pressure 118/76 03/26/25 09:27 Pulse Oximetry 98 03/26/25 09:27 Oxygen Delivery Room Air 03/26/25 09:27 reviewed MDM MDM Narrative Medical decision making narrative: Will treat left otitis media with amoxicillin. Patient is well-appearing, nontoxic. Differential Diagnosis Differential Diagnosis: Differential diagnostic considerations for upper respiratory infection include upper respiratory infection, croup, otitis media, sinusitis, viral infection, bronchitis, influenza, pharyngitis, strep, uvulitis.? Discharge Plan Discharge Clinical Impression: Acute left otitis media, Acute upper respiratory infection Patient Disposition: Home Condition: Stable Instructions: Antibiotic Form, Ear Infection (ED) Additional Instructions: take medications as prescribed. Continue [id number] Mucinex cold medication as directed on packaging. See your doctor if not improving. Patient Language: Nepali Prescriptions: New benzonatate 200 mg capsule 200 mg PO TID PRN (Reason: cough) Qty: 20 0RF amoxicillin 875 mg tablet 875 mg PO Q12H 10 Days Qty: 20 0RF No Action Iud Mirena 21 mcg/24hr (up to 8 yrs) 52 mg intrauterine device 1 device intrauterine ONCE Rx Instructions: as a single dose Follow-up/Referrals: UNKNOWN,DOCTOR [Primary Care Provider] Time of Disposition: 10:02
== END 2025-03-26 10:05 | disposition home or self-care (01) ==
PROVIDERS: Emergency Provider Nurse Practitioner Family
DX: H66.92 Otitis media, unspecified, left ear (principal); J06.9 Acute upper respiratory infection, unspecified
CPT/HCPCS: 99213; G0463